=== PATIENT | male | born 1940 | race Caucasian/White ===

== ENCOUNTER 2017-05-20 14:31 | Emergency (ER) | payer MEDICARE, BC ==
[2017-05-20 14:56] LABS: Hematocrit 46.1 % (42.0-52.0); Hemoglobin 15.6 gm/dL (13.5-18.0); Mean Corpuscular Hemoglobin 28.4 pg (27-31); Mean Corpuscular Hgb Conc 33.8 g/dl (32-36); Mean Platelet Volume 11.4 fl (6.0-9.5); Platelet Count 206 K/mm3 (150-450); Red Blood Count 5.49 M/mm3 (4.7-6.0); Red Cell Distribution Width 13.9 % (11.5-14.0)
[2017-05-20 15:09] LABS: Total Cells Counted 100
--- NOTE | 2017-05-20 15:15 | ERNOTE ---
GI Bleeding/Rectal Pain ER Time Seen by Provider: 05/20/17 14:56 Source: patient Exam Limitations: no limitations Immunizations: IMMUNIZATION HX Immunizations Up to Date Yes History of Influenza Vaccine No Hx Pneumococcal Vaccination Yes Allergies/Adverse Reactions: Allergies No Known Allergies Allergy (Verified 05/20/17 14:43) Home Medications: HOME MEDICATIONS Multivitamins [Multivitamin Mark] 1 cap PO DAILY 03/23/16 [Last Taken Unknown] Hydrocortisone Acetate [Anusol Hc Suppository] 25 mg RC BID #12 supp.rect [Last Taken Unknown] Narrative: Patient presents to the emergency room for one bout of bright red blood per rectum while having a bowel movement approximately 3 hours ago. She denies any abdominal or rectal pain he has not inserted anything in his rectum and he does not feel dizzy. He said that he had a bout like this years ago when he was having diarrhea. He denies having diarrhea however he states he must push a significant amount of bowel movement. Review of Systems - Review of Systems Constitutional: Present: no symptoms reported EYE: Present: no symptoms reported ENT: Present: no symptoms reported Respiratory: Present: no symptoms reported Cardiology: Present: no symptoms reported Gastrointestinal/Abdominal: Present: See HPI Genitourinary: Present: no symptoms reported Musculoskeletal: Present: no symptoms reported Skin: Present: no symptoms reported - Patient's Past Medical History Patient History - Medical: Arthritis, Other Patient History - Cardiac/Respiratory: Hypertension Patient History - Cancer: No Hx of Cancer Patient History - Surgical Procedures: Other Patient History - Other: None - Family History Mother Family History - Medical: , No pertinent hx Family History - Cardiac/Respiratory: Other Father Family History - Medical: , No pertinent hx Family History - Cardiac/Respiratory: Other Brother Family History - Medical: No pertinent hx Family History - Cardiac/Respiratory: Other - Social History Living Situations: home Abuse History: No History of abuse Psych History: No pertinent hx Smoking Status: Never smoker Alcohol Use: occasionally Drug Use: none - Immunizations Immunizations Up to Date: Yes Hx Pneumococcal Vaccination: Yes History of Influenza Vaccine: No Physical Exam - Physical Exam General Appearance: Present: wd/wn, alert, no apparent distress Head Exam: Present: normal inspection Ears, Nose, Throat: Present: normal ENT inspection Respiratory: Present: no respiratory distress, normal breath sounds Cardiovascular/Chest: Present: regular rate, rhythm, no murmur Rectal Exam: Present: other - rectal exam reveals multiple hemorrhoidal veins one of which is pendulous and slightly open, there is a small amount of blood from the hemorrhoidal vein at approximately 9 o'clock position. Back Exam: Present: normal inspection ED Progress - Results and Orders Patient's Lab Results:: I have reviewed the patient's lab results. - Vital Signs Patient's Vital Signs:: I have reviewed the patient's vital signs. Vital Signs: Vital Signs 05/20/17 05/20/17 05/20/17 14:32 14:37 15:08 Temperature 36.9 C Pulse Rate 99 99 Respiratory 17 Rate Blood Pressure 162/98 200/114 O2 Sat by Pulse 97 Oximetry 05/20/17 15:10 Temperature Pulse Rate 90 Respiratory 17 Rate Blood Pressure 181/116 O2 Sat by Pulse 97 Oximetry - Progress/Reassessment Chief Complaint: GI Bleed Plan - Plan Plan: Patient's orthostatic test was negative and this patient did not tilt. His blood pulse is slightly elevated at 99 however he states he has "white coat syndrome" patient's hemoglobin and hematocrit are completely stable and he does not have any signs of orthostatic hypotension upon tilting. Patient will be advised to follow-up with Dr. Song in for a colonoscopy. Departure Clinical Impression: Hemorrhoid Qualifiers: Hemorrhoid type: other Qualified Code(s): K64.8 - Other hemorrhoids - Departure Disposition: Home self-care Condition: Good Instructions: How to Take a Sitz Bath Additional Instructions: Please make an appointment with surgery clinic and follow-up for your colonoscopy. Prescriptions: Hydrocortisone Acetate [Anusol Hc Suppository] 25 mg RC BID #12 supp.rect
[2017-05-20 15:26] VITALS: BP 160/108
[2017-05-20 15:29] LABS: Eosinophil 1 % (0-3); Lymphocyte 11 % (20-51); Monocyte 3 % (0-9); Neutrophil 85 % (42-75); Neutrophil # 5.1 K/mm3 (1.3-6.0); Platelet Estimate Normal (NORMAL); RBC Morphology Normal (NORMAL)
== END 2017-05-20 15:41 | disposition home or self-care (01) ==
LOC: ER 14:31
DX: K64.8 Other hemorrhoids (principal)

== ENCOUNTER 2017-06-09 11:51 | Emergency (ER) | payer MEDICARE, BC ==
--- NOTE | 2017-06-09 12:35 | ERNOTE ---
Medical Problem HPI - General Chief Complaint: Nausea/Vomiting Time Seen by Provider: 06/09/17 12:32 Source: patient, RN notes reviewed Exam Limitations: no limitations - Immun/Allergies/Home Medications Immunizations: IMMUNIZATION HX Immunizations Up to Date Yes History of Influenza Vaccine No Hx Pneumococcal Vaccination Yes Allergies/Adverse Reactions: Allergies No Known Allergies Allergy (Verified 05/20/17 14:43) Home Medications: HOME MEDICATIONS Lisinopril 20 mg PO DAILY 06/09/17 [Last Taken Unknown] Losartan Potassium [Cozaar] 0.5 tab PO DAILY #15 tablet 06/09/17 [Last Taken Unknown] - History of Present History Narrative: Patient has had problems with nausea and hypertension since . He was on Lisinopril 20 mg PO daily, but he felt that was too much, so he kept cutting up the pills, and got down to 5 mg PO daily, then stopped completely. He did try taking some of the Lisinopril but it has been cut apart for some time, it did not appear to work as well. His blood pressure here was greater than 200 systolic. Timing: intermittent Severity: moderate Modifying Factors - (Improves): Present: medication Modifying Factors - (Worsens): Present: other - morning Review of Systems - Review of Systems Constitutional: Absent: recent illness, fever, chills, weakness, malaise EYE: Present: no symptoms reported ENT: Absent: ear pain, sore throat Respiratory: Absent: shortness of breath, cough, wheezing Cardiology: Absent: chest pain, palpitations Gastrointestinal/Abdominal: Present: nausea. Absent: vomiting, diarrhea, abdominal pain Genitourinary: Present: no symptoms reported Musculoskeletal: Present: no symptoms reported Skin: Present: no symptoms reported Neurological: Present: dizziness/light-headedness Endocrine: Present: no symptoms reported Hematologic/Lymphatic: Present: no symptoms reported Psych: Present: no symptoms reported - Patient's Past Medical History Patient History - Medical: Arthritis, Other Patient History - Cardiac/Respiratory: Hypertension Patient History - Cancer: No Hx of Cancer Patient History - Surgical Procedures: Other Patient History - Other: None - Family History Mother Family History - Medical: , No pertinent hx Family History - Cardiac/Respiratory: Other Father Family History - Medical: , No pertinent hx Family History - Cardiac/Respiratory: Other Brother Family History - Medical: No pertinent hx Family History - Cardiac/Respiratory: Other - Social History Living Situations: home Abuse History: No History of abuse Psych History: No pertinent hx Smoking Status: Never smoker Have you smoked in the past 12 months: No Do you dip or chew tobacco: No Alcohol Use: rarely Drug Use: none - Immunizations Immunizations Up to Date: Yes Hx Pneumococcal Vaccination: Yes History of Influenza Vaccine: No Physical Exam - Physical Exam General Appearance: Present: wd/wn, alert, no apparent distress Head Exam: Present: normal inspection, no evidence of injury Eye Exam: Normal inspection: bilateral, PERRL: bilateral, EOMI: bilateral Ears, Nose, Throat: Present: normal ENT inspection Neck: Present: normal inspection, nontender Respiratory: Present: no respiratory distress, normal breath sounds, no accessory muscle use, chest nontender, lungs clear Cardiovascular/Chest: Present: regular rate, rhythm, no murmur, normal peripheral pulses Gastrointestinal/Abdominal: Present: normal bowel sounds, nontender, nondistended, soft Back Exam: Present: normal inspection, normal range of motion Extremity Exam: Present: normal inspection, normal range of motion Neurological Exam: Present: alert, oriented, normal mood/affect, no motor/ sensory deficits Skin Exam: Present: normal color, warm/dry Lymphatic Exam: Present: no adenopathy ED Progress - Results and Orders Patient's Lab Results:: I have reviewed the patient's lab results. Results and Orders: Laboratory Tests 06/09/17 06/09/17 06/09/17 13:28 13:28 14:10 WBC 7.0 RBC 5.71 Hgb 16.0 Hct 47.6 MCV 83.4 MCH 28.0 MCHC 33.6 RDW 13.8 Plt Count 216 MPV 11.2 H Immature Gran % (Auto) 0.40 Immature Gran # (Auto) 0.03 Neutrophils % 81.8 H Lymphocytes % 10.1 L Monocytes % 6.6 Eosinophils % 0.7 Basophils % 0.4 Nucleated RBC % 0.0 Neutrophils # 5.7 Lymphocytes # 0.7 L Monocytes # 0.5 Eosinophils # 0.1 Absolute Basophils 0.0 Sodium 139 Plasma Sodium 139 Potassium 4.5 Chloride 101 Carbon Dioxide 30.9 Anion Gap 11.6 BUN 27 H Creatinine 0.89 Est GFR (Non-Af Amer) 88 BUN/Creatinine Ratio 30.3 H Random Glucose 88 Calcium 10.1 Calcium Adj for Albumin 9.8 Total Bilirubin 0.5 AST 21 ALT 23 Alkaline Phosphatase 91 Troponin I Less than 0.017 Total Protein 7.9 Albumin 4.0 Urine Color Yellow Urine Appearance Slightly cloudy Urine pH 7.5 Ur Specific [place] 1.015 Urine Protein Negative Urine Glucose (UA) Negative Urine Ketones Negative Urine Blood Negative Urine Nitrate Negative Urine Bilirubin Negative Urine Urobilinogen Normal Ur Leukocyte Esterase Negative Urine RBC None seen Urine WBC None seen Ur Epithelial Cells None seen Amorphous Sediment Moderate - 2+ H Urine Bacteria None seen Urine Culture Comments No culture indicated - Vital Signs Patient's Vital Signs:: I have reviewed the patient's vital signs. Vital Signs: Vital Signs 06/09/17 12:08 Temperature 36.5 C Pulse Rate 101 H Respiratory 16 Rate Blood Pressure 152/87 O2 Sat by Pulse 98 Oximetry - EKG EKG: NSR, other - Occasional Ventricular premature complexes - X-Ray X-Ray #1 X-Ray: chest Interpretation: Reviewed by me X-ray Comments: [facility] PATIENT RADIOLOGY STUDY REPORT Patient Patient Name:KASIA KELLY Date: 1940 Sex: M Order Number: [id number] Unique Exam ID: [id number] Exam Requested: CXRPALAT - Chest PA Lateral * Date Scheduled: 06-09-2017 01:40 PM Study Priority: Requesting Service: Requesting Physician: Donna Casey Reason for Exam: dizziness and nausea Radiological Report : [facility] [address] - [place] [address] NAME: KASIA KELLY : 1940 MR #: [id number] CC: LOC: ER ADM DATE: X-RAY REPORT [id number] RAD/Chest PA Lateral * Exam Date: 06/09/2017 13:40 Ordering Physician: Donna Casey HISTORY: dizziness and nausea 2 VIEW CHEST Comparison: NONE Technique: Upright frontal and lateral views of the chest were obtained. Findings: The cardiac silhouette is within normal limits of size. The mediastinum and hilum are with in normal limits. There is evidence for prior calcified granulomatous disease. The lung whitlock demonstrate mild hyperinflation, but are clear. I do not see evidence for an infiltrate, effusion or pulmonary edema. IMPRESSION: 1. NO ACUTE CARDIOPULMONARY PROCESS. Electronically signed by Ernesto Khan M.D.. Ernesto Khan MD Dict: 06/09/17 1348 Typed: 06/09/17 1348/ - Progress/Reassessment Chief Complaint: Nausea/Vomiting Progress:: Improved Progress Note-Subjective: 06/09/17 16:09 Cozaar 25 mg PO. Patient refuses the Lisinopril secondary to the cough that accompanies that medication. Departure Clinical Impression: Uncontrolled hypertension, Nausea - Departure Disposition: Home self-care Condition: Good Instructions: Hypertension, [id number], Managing Your High Blood Pressure Additional Instructions: Stop the Lisinopril! Referrals: Toño Stephen DO [Primary Care Provider] - (3-5 days) Prescriptions: Losartan Potassium [Cozaar] 0.5 tab PO DAILY #15 tablet
[2017-06-09 13:34] LABS: Hematocrit 47.6 % (42.0-52.0); Mean Cell Volume 83.4 fl (78-100); Mean Corpuscular Hgb Conc 33.6 g/dl (32-36); Mean Platelet Volume 11.2 fl (6.0-9.5); Neutrophil # 5.7 K/mm3 (1.3-6.0); Neutrophil % 81.8 % (42-75.0); Platelet Count 216 K/mm3 (150-450); Red Blood Count 5.71 M/mm3 (4.7-6.0); Red Cell Distribution Width 13.8 % (11.5-14.0)
[2017-06-09 13:51] LABS: ALT 23 U/L (19-67); AST 21 U/L (0-48); Alkaline Phosphatase * 91 U/L (50-170); Anion Gap 11.6 mmol/L (6.8-13.8); BUN/Creatinine Ratio 30.3 (9.0-21.6); Bilirubin, Total 0.5 mg/dL (0.0-1.1); Blood Urea Nitrogen 27 mg/dL (6-23); Ca. Corrected For Albumin 9.8 mg/dL (8.4-10.2); Calcium * 10.1 mg/dL (7.9-10.9); Carbon Dioxide 30.9 mmol/L (24-32.6); Chloride 101 mmol/L (97-106); Glucose * 88 mg/dL (70-110); Potassium 4.5 mmol/L (3.4-4.6); Sodium 139 mmol/L (132-142); Total Protein 7.9 gm/dL (6.2-8.2)
[2017-06-09 13:52] LABS: Troponin I Less than 0.017 ng/ml (0.00-0.10)
[2017-06-09 14:20] LABS: Urine Appearance Slightly Cloudy; Urine Color Yellow
[2017-06-09 14:21] LABS: Urine Amorphous Sediment Moderate - 2+ (NONE-FEW); Urine Bacteria None Seen; Urine Bilirubin Negative (NEGATIVE); Urine Blood Negative /ul (NEGATIVE); Urine Ketone Negative (NEGATIVE); Urine Nitrite Negative (NEGATIVE); Urine Protein Negative (NEGATIVE); Urine RBC None Seen /hpf (0-5); Urine Specific Gravity 1.015 SP.GR. (1.005-1.030); Urine Urobilinogen Normal (NORMAL); Urine WBC None Seen /hpf (0-5); Urine pH 7.5 pH (5.0-7.0)
[2017-06-09] MEDS ORDERED: LOSARTAN POTASSIUM 50 MG TABLET ONE (15:55)
[2017-06-09] MEDS ORDERED: LOSARTAN POTASSIUM 50 MG TABLET PO ONE (16:00)
[2017-06-09 16:23] VITALS: BP 159/96
== END 2017-06-09 16:15 | disposition home or self-care (01) ==
LOC: ER 11:51
DX: I10 Essential (primary) hypertension (principal)

== ENCOUNTER 2017-06-17 23:07 | Emergency (ER) | payer MEDICARE, BC ==
--- NOTE | 2017-06-17 23:50 | ERNOTE ---
Medical Problem HPI - Narrative Date of Service: 06/17/17 - General Chief Complaint: Screening, Blood Pressure Time Seen by Provider: 06/17/17 23:47 Source: patient - Immun/Allergies/Home Medications Immunizations: IMMUNIZATION HX Immunizations Up to Date Yes History of Influenza Vaccine No Hx Pneumococcal Vaccination Yes Allergies/Adverse Reactions: Allergies No Known Allergies Allergy (Verified 06/17/17 23:14) Home Medications: HOME MEDICATIONS Losartan Potassium [Cozaar] 0.5 tab PO DAILY #15 tablet 06/09/17 [Last Taken Unknown] - History of Present History Narrative: This is a 77-year-old male who comes to the emergency department for evaluation of his blood pressure. The patient says he was in here on Sunday last when he was noted to have high blood pressure. He had his heart checked out and kidneys checked out. He was started on an antihypertensive. He saw his doctor shortly afterwards and had the dose doubled. Patient's been keeping track his blood pressure every day and is noted that it has been increasing. This evening it was 210 systolic. The patient says that since Sunday he has been having intermittent epigastric tightness. He says it is not associated with nausea vomiting diaphoresis shortness of breath or really any other symptom. He denies having throbbing headache blurred vision shortness of breath or overt chest pain Review of Systems - Review of Systems Constitutional: Present: no symptoms reported EYE: Present: no symptoms reported ENT: Present: no symptoms reported Respiratory: Present: no symptoms reported Cardiology: Present: chest pain Gastrointestinal/Abdominal: Present: no symptoms reported Genitourinary: Present: no symptoms reported Musculoskeletal: Present: no symptoms reported Skin: Present: no symptoms reported Neurological: Present: no symptoms reported Endocrine: Present: no symptoms reported Hematologic/Lymphatic: Present: no symptoms reported Psych: Present: no symptoms reported All Other Systems: All systems neg except as marked - Patient's Past Medical History Patient History - Medical: Arthritis, Other Patient History - Cardiac/Respiratory: Hypertension Patient History - Cancer: No Hx of Cancer Patient History - Surgical Procedures: Other Patient History - Other: None - Family History Mother Family History - Medical: , No pertinent hx Family History - Cardiac/Respiratory: Other Father Family History - Medical: , No pertinent hx Family History - Cardiac/Respiratory: Other Brother Family History - Medical: No pertinent hx Family History - Cardiac/Respiratory: Other - Social History Abuse History: No History of abuse Psych History: No pertinent hx Smoking Status: Never smoker - Immunizations Immunizations Up to Date: Yes Hx Pneumococcal Vaccination: Yes History of Influenza Vaccine: No Physical Exam - Physical Exam General Appearance: Present: wd/wn, alert, no apparent distress Head Exam: Present: normal inspection, no evidence of injury Eye Exam: Normal inspection: bilateral, PERRL: bilateral, EOMI: bilateral Ears, Nose, Throat: Present: normal ENT inspection, normal pharynx Neck: Present: normal inspection, nontender Respiratory: Present: no respiratory distress, normal breath sounds, no accessory muscle use, chest nontender, lungs clear Cardiovascular/Chest: Present: regular rate, rhythm, no murmur Gastrointestinal/Abdominal: Present: normal bowel sounds, nontender, nondistended, soft Back Exam: Present: normal inspection, normal range of motion, no CVA tenderness , no vertebral tenderness Extremity Exam: Present: normal inspection, non-tender, no edema Neurological Exam: Present: alert, oriented, normal mood/affect Skin Exam: Present: normal color, warm/dry Lymphatic Exam: Present: no adenopathy ED Progress - Results and Orders Patient's Lab Results:: I have reviewed the patient's lab results. - Vital Signs Patient's Vital Signs:: I have reviewed the patient's vital signs. Vital Signs: Vital Signs 06/17/17 23:15 Temperature 36.9 C Pulse Rate 86 Respiratory 16 Rate Blood Pressure 196/115 O2 Sat by Pulse 97 Oximetry - EKG EKG: NSR EKG read: Interp. by me EKG Comments: Sinus rhythm at 83 normal axis normal intervals T-wave inversion in 3 and aVF no signs of ST elevation or depression - X-Ray X-Ray #1 X-Ray: chest Interpretation: Interp. by me X-ray Comments: No acute cardiopulmonary disease compared to previous no change - Progress/Reassessment Chief Complaint: Screening, Blood Pressure Progress:: Unchanged Progress Note-Subjective: 06/18/17 00:32 The patient says that he is here primarily to have his blood pressure checked. The discomfort he is describing he rates as incidental. He says he thinks it's from acid reflux. His EKG does not demonstrate anything acute. There were nonspecific changes. If his first troponin is negative I believe he would be safe to be discharged home with close follow-up with his family doctor including a stress test. I have stressed to him the importance of having this done. Departure Clinical Impression: Hypertension - Departure Disposition: Home self-care Condition: Good Instructions: Hypertension, [id number] Additional Instructions: As we discussed her blood pressure is elevated at times. There are other times that her blood pressure is nearly normal. You do not need to worry about your blood pressure being elevated in the short-term and left to have symptoms such as throbbing headache, blurred vision, chest pain, shortness of breath. I want you talk to her family doctor, tell them you were seen in the ER, and ask to have a stress test. This will give a great deal of information. Return to the emergency department for any new concerning symptoms
[2017-06-18 00:07] LABS: Hematocrit 44.2 % (42.0-52.0); Hemoglobin 15.1 gm/dL (13.5-18.0); Mean Cell Volume 84.4 fl (78-100); Mean Corpuscular Hemoglobin 28.8 pg (27-31); Mean Corpuscular Hgb Conc 34.2 g/dl (32-36); Mean Platelet Volume 11.3 fl (6.0-9.5); Neutrophil # 4.7 K/mm3 (1.3-6.0); Neutrophil % 74.2 % (42-75.0); Platelet Count 216 K/mm3 (150-450); Red Blood Count 5.24 M/mm3 (4.7-6.0); Red Cell Distribution Width 13.8 % (11.5-14.0); White Blood Count 6.4 K/mm3 (4.0-10.5)
[2017-06-18 00:28] LABS: ALT 19 U/L (19-67); AST 17 U/L (0-48); Albumin * 3.7 gm/dl (3.4-5.0); Alkaline Phosphatase * 94 U/L (50-170); Anion Gap 11.6 mmol/L (6.8-13.8); BUN/Creatinine Ratio 29.9 (9.0-21.6); Bilirubin, Total 0.3 mg/dL (0.0-1.1); Blood Urea Nitrogen 26 mg/dL (6-23); Ca. Corrected For Albumin 8.8 mg/dL (8.4-10.2); Calcium * 8.9 mg/dL (7.9-10.9); Carbon Dioxide 28.8 mmol/L (24-32.6); Chloride 106 mmol/L (97-106); Glucose * 84 mg/dL (70-110); Potassium 4.4 mmol/L (3.4-4.6); Sodium 142 mmol/L (132-142); Total Protein 7.4 gm/dL (6.2-8.2)
[2017-06-18 00:43] LABS: Troponin I Less than 0.017 ng/ml (0.00-0.10)
[2017-06-18 03:42] VITALS: BP 173/101
== END 2017-06-18 01:04 | disposition home or self-care (01) ==
LOC: ER 23:07
DX: I10 Essential (primary) hypertension (principal); M19.90 Unspecified osteoarthritis, unspecified site

== ENCOUNTER 2017-06-20 09:33 | Day surgery (SDC) | payer MEDICARE, BC ==
[~2017-06-20 09:33] MED LIST: RINGER'S SOLUTION,LACTATED 1,000 ML IV PRN
[2017-06-20] MEDS ORDERED: RINGER'S SOLUTION,LACTATED 1,000 ML IV ONE (10:15)
[2017-06-20] MEDS ORDERED: LIDOCAINE HCL 10 ML VIAL IJ ONE ×2 (10:38)
[2017-06-20] MEDS ORDERED: RINGER'S SOLUTION,LACTATED 1,000 ML IV PRN (10:55)
[2017-06-20 11:54] VITALS: BP 136/77
--- NOTE | 2017-06-20 19:40 | OR ---
Operative Report - Dictated Report Narrative: OPERATIVE REPORT DATE OF OPERATION: 06/20/2017 PREOPERATIVE DIAGNOSIS: Rectal bleeding. No recent dedicated colon studies POSTOPERATIVE DIAGNOSIS: Pedunculated anal skin tag. Significant sigmoid diverticulosis OPERATION: Colonoscopy with amputation of 1.5 cm pedunculated perianal skin tag SURGEON: Keri Pollard MD ANESTHESIA: MAC/local Wojciech Quiroga CRNA INDICATIONS FOR PROCEDURE: The patient is a 76-year-old male referred by the emergency room for rectal bleeding and a hemorrhoid FINDINGS: 1.5 cm pedunculated perianal skin tag. Significant sigmoid diverticulosis otherwise normal colonoscopy to the cecum NARRATIVE OF PROCEDURE: The patient was identified in the holding area, and prior to the administration of anesthetic, a multidisciplinary timeout was observed. With the patient in the left lateral position and after the administration of intravenous sedation, the perineum was inspected. There was no evidence of pilonidal disease or skin breakdown. The external appearance of the anus was normal with exception of a 1.5 cm pedunculated skin tag with a very narrow base. Sphincter tone was good. The flexible fiberoptic colonoscope was inserted into the rectum which was insufflated with air. The rectal mucosa and submucosal vascular pattern appeared normal, the prep was seen to be complete. The scope was advanced through the sigmoid colon, which contained numerous large non-impacted noninflamed diverticular openings. The scope was advanced up the descending colon, and around the splenic flexure where the triangular haustral architecture of the transverse colon was seen. The scope was advanced across the transverse colon, around the hepatic flexure to the cecum, where the confluence of tenia and the ileocecal valve were identified. The mucosa at this level appeared normal. The scope was then slowly withdrawn in a circular fashion so that all aspects of colonic mucosa were inspected. The colon was normal in course and caliber. The haustral architecture appeared well preserved throughout with no evidence of external compression. The mucosa and submucosal vascular pattern appeared normal, specifically there was no gross evidence to suggest colitis or inflammatory bowel disease and no AV malformations were seen. The diverticulosis was significant in degree and confined primarily to the sigmoid colon. No polyps were encountered. The scope was gradually withdrawn to the level of the rectum. As much insufflated air as possible was removed. The scope was withdrawn from the patient. The pedunculated skin tag was prepped with Betadine solution in the base anesthetized with 1% Xylocaine. The very narrow base was amputated with cautery. The wound appeared clean and hemostatic. No specimen was submitted due to the obvious benign gross appearance of the tissue. The operative procedure was terminated at this point. The patient tolerated the anesthetic and procedure well without complication and was transferred back to the ambulatory surgery area awake and in stable condition. The patient remained stable throughout a period of postoperative observation. He denied abdominal or anal discomfort, was able to tolerate by mouth intake, and was up without assistance. I shared the operative findings with the patient and he was given copies of the photographs which appear in the medical record. He was discharged home with instructions not to engage in hazardous activity today, but may resume normal activity tomorrow, and advance diet as tolerated. He may leave the anal wound open to keep it clean. He is to continue those medications as listed in the history and physical exam. He has phone numbers to call if needed for pain or bleeding or signs of infection. A pamphlet on diverticular disease was reviewed with him and given to him, I recommended that he continue Benefiber on a daily basis and titrate the dose as needed. RECOMMENDATION: Colon surveillance in 10 years depending upon findings and symptoms Reviewed and electronically signed
== END 2017-06-20 09:34 | disposition home or self-care (01) ==
LOC: AMB 09:33
PROVIDERS: ATTEND Surgery
PROC: 0DBQXZZ Excision of Anus, External Approach (ICD-10-PCS; 2017-06-20)
PROC: 0DJD8ZZ Inspection of Lower Intestinal Tract, Via Natural or Artificial Opening Endoscopic (ICD-10-PCS; principal; 2017-06-20 10:45)
DX: K62.5 Hemorrhage of anus and rectum (principal); K57.30 Diverticulosis of large intestine without perforation or abscess without bleeding; K64.4 Residual hemorrhoidal skin tags; I10 Essential (primary) hypertension; Z68.23 Body mass index [BMI] 23.0-23.9, adult